=== PATIENT | male | born 1935 | race Caucasian/White ===

== ENCOUNTER 2016-12-11 12:38 | Emergency (ER) | payer MEDICARE, OTHER ==
[~2016-12-11] VITALS: Ht 177.8 cm; Wt 79.4 kg
--- NOTE | 2016-12-11 14:51 | RAD ---
CT of the head without contrast, 12/11/2016: History: Fall, pain No previous scans are available at this time for comparison purposes. There is a large area of encephalomalacia in the right cerebral hemisphere compatible with an old infarct. There is sparing of a portion of the right frontal lobe anteriorly and the right frontoparietal lobes in a parasagittal location. The remainder of the right cerebral hemisphere demonstrates encephalomalacia with scattered coarse calcifications. There is compensatory enlargement of the right lateral ventricle. The left cerebral hemisphere demonstrates mild atrophy. There is no evidence of acute intracranial hemorrhage or mass effect. There are defects in the calvarium in the left occipital region suggesting prior surgery. IMPRESSION: 1. 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 2. No acute intracranial abnormality is detected. CT of the facial bones without contrast, 12/11/2016: Noncontrast scans were obtained with multiplanar reconstructions produced. No fracture is identified. There is mucosal thickening involving all the paranasal sinuses. There is dependent debris in the sphenoid sinuses. The orbital contents are unremarkable. IMPRESSION: 1. Pansinusitis. 2. No acute facial bone abnormality is detected. PQRS Compliance Statement: One or more of the following individualized dose reduction techniques were utilized for this examination: 1. Automated exposure control 2. Adjustment of the mA and/or kV according to patient size 3. Use of iterative reconstruction technique
--- NOTE | 2016-12-11 14:57 | RAD ---
CT of the cervical spine without contrast, 12/11/2016: History: Fall, pain Noncontrast scans were obtained with multiplanar reconstructions produced. There is moderate disc space narrowing and marginal spurring at C5-6 and C6-7. There are additional scattered spurs at the other disc levels. There are moderate degenerative changes involving multiple facet joints bilaterally no acute fracture or dislocation is identified. No high-grade central spinal stenosis is seen. The spurring is causing foraminal stenosis at multiple levels, more so on the left. IMPRESSION: 1. Moderate multilevel degenerative change. 2. No acute bony abnormality is detected. PQRS Compliance Statement: One or more of the following individualized dose reduction techniques were utilized for this examination: 1. Automated exposure control 2. Adjustment of the mA and/or kV according to patient size 3. Use of iterative reconstruction technique
--- NOTE | 2016-12-11 15:03 | RAD ---
CT of the thoracic spine without contrast, 12/11/2016: History: Fall, pain Noncontrast scans were obtained with multiplanar reconstructions produced. The vertebral heights are well-maintained. There are moderate scattered marginal spurs. There are mild to moderate degenerative changes involving scattered facet joints bilaterally. No high-grade spinal stenosis is seen. Incidental note is made of moderate scattered parenchymal opacities in both lungs most prominent posteriorly. These probably represent a combination of scarring, atelectasis and dependent congestion. There is calcific plaquing of aorta and coronary arteries. IMPRESSION: 1. Moderate multilevel degenerative change. 2. No acute thoracic spine abnormality is detected. PQRS Compliance Statement: One or more of the following individualized dose reduction techniques were utilized for this examination: 1. Automated exposure control 2. Adjustment of the mA and/or kV according to patient size 3. Use of iterative reconstruction technique
--- NOTE | 2016-12-11 15:08 | PHYS DOC ---
Past Medical History Past Medical History: CVA, Dementia, Diabetes-Type II, Other Additional Past Medical Histor: hemiplegia of left side Past Surgical History: Other Additional Past Surgical Histo: hernia Alcohol Use: None Drug Use: None Adult General Chief Complaint Chief Complaint: MECHANICAL FALL HPI HPI Patient is a 81 year old male who presents with pain and injuries from a fall. Patient was lying in his bed at his custodial when he reached for a lamp that was out of reach and caused him to fall out of bed onto the carpeted floor. No loss of consciousness. Patient was unable to get up on his own, which is not uncommon. He denies headache, he is slightly photophobic. He has chronic unchanged left-sided pain in his extremities from his previous stroke. He takes Plavix from his previous strokes. Review of Systems Review of Systems Constitutional: Denies fever or chills [] Eyes: Denies change in visual acuity, redness, or eye pain [] HENT: Denies nasal congestion or sore throat [] Respiratory: Denies cough or shortness of breath [] Cardiovascular: Denies chest pain GI: Denies abdominal pain, nausea, vomiting, bloody stools or diarrhea [] : Denies dysuria or hematuria [] Musculoskeletal: Denies back pain or joint pain [] Integument: Denies rash or skin lesions [] Neurologic: Denies headache, denies new focal weakness or sensory changes [] Allergies Allergies Allergies Coded Allergies Type Severity Reaction Last Updated Verified lidocaine Adverse Reaction Intermediate dizzy; nausea 12/11/16 Yes Physical Exam Physical Exam Constitutional: Well developed, well nourished, no acute distress, non-toxic appearance. [] HENT: Normocephalic, already healing bridge laceration, no septal hematoma, no mastoid ttp, bilateral external ears normal, oropharynx moist, no oral exudates , nose normal. [] Eyes: PERRLA, EOMI, conjunctiva normal, no discharge. [] Neck: Normal range of motion, no tenderness, supple, no stridor. [] Cardiovascular:Heart rate regular with regular rhythm, systolic murmur [] Lungs & Thorax: Bilateral breath sounds clear to auscultation, no wheeze Abdomen: Bowel sounds normal, soft, no tenderness, no masses, no pulsatile masses. [] Skin: Warm, dry, no erythema, no rash. [] Back: ttp proximal thoracic spine, no stepoffs, no CVA tenderness. [] Extremities:ttp of the LUE and LLE without deformity. Unable to move those extremities. R extremities nontender and nondeformed. Neurologic: Alert and oriented X 3, no new focal deficits noted. [] Psychologic: Affect normal, judgement normal, mood normal. [] Current Patient Data Vital Signs Vital Signs Date Time Temp Pulse Resp B/P (MAP) Pulse Ox O2 Delivery O2 Flow Rate FiO2 12/11/16 12:38 98.1 67 18 159/73 (101) 96 Room Air 98.1 EKG EKG [] Radiology/Procedures Radiology/Procedures head/face: IMPRESSION: 1. 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 2. No acute intracranial abnormality is detected. IMPRESSION: 1. Pansinusitis. 2. No acute facial bone abnormality is detected. CT neck: CT of the cervical spine without contrast, 12/11/2016: IMPRESSION: 1. Moderate multilevel degenerative change. 2. No acute bony abnormality is detected. CT of the thoracic spine without contrast, 12/11/2016: History: Fall, pain Noncontrast scans were obtained with multiplanar reconstructions produced. The vertebral heights are well-maintained. There are moderate scattered marginal spurs. There are mild to moderate degenerative changes involving scattered facet joints bilaterally. No high-grade spinal stenosis is seen. Incidental note is made of moderate scattered parenchymal opacities in both lungs most prominent posteriorly. These probably represent a combination of scarring, atelectasis and dependent congestion. There is calcific plaquing of aorta and coronary arteries. IMPRESSION: 1. Moderate multilevel degenerative change. 2. No acute thoracic spine abnormality is detected. Course & Med Decision Making Course & Med Decision Making Pertinent Labs and Imaging studies reviewed. (See chart for details) Pt declined pain medication. Wounds cleaned. CT's performed. No acute findings. Will transfer pt back to [facility] and return precautions given. Dragon Disclaimer Dragon Disclaimer This electronic medical record was generated, in whole or in part, using a voice recognition dictation system. Departure Departure Impression: Primary Impression: Facial trauma Additional Impression: Fall Disposition: HOME, SELF-CARE Condition: STABLE Referrals: CAROLYNN DE LEÓN MD (PCP) Problem Qualifiers KATIE PÉREZ MD December 11, 2016 15:08
[2016-12-11 15:41] VITALS: BP 144/69
== END 2016-12-11 15:45 | disposition home or self-care (01) ==
LOC: ER 12:38
DX: S09.93XA Unspecified injury of face, initial encounter (principal); M54.6 Pain in thoracic spine; E11.9 Type 2 diabetes mellitus without complications; G81.94 Hemiplegia, unspecified affecting left nondominant side; F03.90 Unspecified dementia, unspecified severity, without behavioral disturbance, psychotic disturbance, mood disturbance, and anxiety; G93.89 Other specified disorders of brain; Z86.73 Personal history of transient ischemic attack (TIA), and cerebral infarction without residual deficits; Z88.4 Allergy status to anesthetic agent; W06.XXXA Fall from bed, initial encounter; Y93.89 Activity, other specified; Y92.89 Other specified places as the place of occurrence of the external cause; Y99.8 Other external cause status
CPT/HCPCS: 70450; 70486; 72125; 72128; 99284-25